=== PATIENT | female | born 1970 | race Caucasian/White ===

== ENCOUNTER → 2020-12-27 | Outpatient (CLI) | payer OTHER, SELFPAY ==
--- NOTE | 2020-12-28 | EMB_PTH ---
PATIENT: CALEB MATOS LOC: [facility] U#:[id number] AGE/SX: 50/F ROOM: RE12/27/[address]: Dr. Samir Neff MD : 1970 BED: DIS: 12/27/2020 SPEC #: [id number] RECD: 12/28/20 12:25 STATUS: JF SURAJ #: [id number] MECHE: 12/28/20 00:[address]: Samir Neff DEPT: SURGICAL PATHOLOGY RECD BY: Abhijeet Farrell Tissues: Endometrium, NOS Procedures: Surgery Specimen Level IV HEADER OPERATION: Endometrial biopsy PRE-OP DIAGNOSIS: Abnormal uterine bleeding TISSUE SUBMITTED: Endometrial biopsy MICROSCOPIC DIAGNOSIS Endometrium, biopsy: Weakly proliferative endometrium with focal glandular and stromal breakdown. AM:michele 12/29/2020 MICROSCOPIC DESCRIPTION Slides are reviewed. GROSS DESCRIPTION Received in fixative is one container labeled with the patient's name and designated EM biopsy. The specimen consists of multiple fragments of hemorrhagic soft tissue that in aggregate measure 2 x 1.5 x 0.2 cm. The specimen is totally submitted in one cassette. / SJ:michele 12/28/20 TC:5 CPT: 01087
[2021-01-02 17:57] LABS: HPV Reflexed? NOT INDICATED
== END | disposition home or self-care (01) ==
LOC: LABSPEC 12-28 09:10
PROVIDERS: Visit Provider Obstetrics & Gynecology
DX: N93.9 Abnormal uterine and vaginal bleeding, unspecified (principal); Z12.4 Encounter for screening for malignant neoplasm of cervix
CPT/HCPCS: 88175; 88305; G0145

== ENCOUNTER 2021-01-16 06:12 | Inpatient (IN) | payer SELFPAY, OTHER ==
--- NOTE | 2021-01-12 13:22 | EKG12_ITS ---
Test Reason : PREOP Blood Pressure : / mmHG Vent. Rate : 070 BPM Atrial Rate : 070 BPM P-R Int : 152 ms QRS Dur : 108 ms QT Int : 404 ms P-R-T Axes : 049 037 053 degrees QTc Int : 436 ms Normal sinus rhythm Normal ECG Confirmed by ERYN PHILIP, SARAH ([id number]), editorial assistant JONN VELEZ ([id number]) on 01/13/2021 10:08:26 AM Referred By: Samir Neff Confirmed By:SARAH CERNA MD
[2021-01-12 14:53] LABS: Hemoglobin 10.1 g/dL (12.0-15.0); Mean Corp Hgb Conc 29.7 g/dL (32-36); Mean Corpuscular Hgb 25.3 pg (27.0-32.0); Mean Corpuscular Volume 85.2 fL (81-99); Mean Platelet Vol. 10.8 fl (6.2-12.0); POSITIVE MORPHOLOGY YES; Platelet Count 304 K/mm3 (150-450); Red Blood Count 3.99 M/mm3 (4.2-5.4); White Blood Count 4.3 K/mm3 (4.4-11.0)
[2021-01-12 15:03] LABS: International Normalized Ratio 1.1; Prothrombin Time (Protime)PT. 13.8 SECONDS (11.7-14.9)
[2021-01-12 15:04] LABS: Partial Thromboplast Time 25.7 Seconds (24.1-36.2)
[2021-01-12 15:43] LABS: ALB/GLOB Ratio 1.2 RATIO (0.9-2.4); AST(SGOT) 18 U/L (15-37); Alanine Aminotransfer ALT/SGPT 40 U/L (13-56); Albumin, Serum 3.6 g/dL (3.2-5.0); Alkaline Phosphatase 25 U/L (45-117); Anion Gap 2 (5-15); BUN 9 mg/dL (7-18); BUN/Creat Ratio 11.3 RATIO (10-20); Calcium,Total 8.5 mg/dL (8.5-10.1); Chloride 110 mmol/L (98-107); Creatinine, Serum 0.79 mg/dL (0.55-1.02); EST Glomerular Filtration Rate 81 mL/min (>60); Est Glom Filt Rate - Afr Amer 98 mL/min (>60); Globulin 3.1 g/dL (2.2-4.2); Glucose 83 mg/dL (74-106); Magnesium 2.4 mg/dL (1.6-2.6); Potassium 3.6 mmol/L (3.5-5.1); Protein, Total 6.7 g/dL (6.4-8.2); Sodium Level 140 mmol/L (136-145)
[2021-01-12 15:55] LABS: Scan Indicated on CBC? Y/N YES- FLAGS NOTED
[2021-01-13 13:30] LABS: Pathologist Review Reviewed
--- NOTE | 2021-01-15 15:32 | PCM.HP.BLA ---
History and Physical Date of Admission: 01/16/21 Surgical History and Physical Alina Dodd, a 50 year old female 5 0 0 0 5, presents for RICK/BSO on January 16, 2021 at 11:30. -- Excessive Vaginal Bleeding and Blood Loss Anemia; Ovarian Cyst -- Pt is a 50yo female with regular monthly menses. She relates her menses is typically heavy flow and lasts 5-7days. LMP 12/11/20 and pt has been bleeding for 17 days continual. She began having moderate to severe pain in the lower abd 12/16/20 at which time she saw her PCP and had a full workup including pelvic sono that shows a Uterine fibroid as well as a 5cm cyst on her Lt ovary. Pt relates she had a bleeding ovarian cyst in . Hgb is 7.3 today. Menorrhagia which began Pain began Dec. Alina claims it started suddenly and has been present since 12/16/20. It occurs bleeding since 12/11 and pain since 12/16. It is located in the vaginal bleeding. Alina characterizes it to be non-radiating. Associated signs and symptoms are Heavy Vag bleeding and Anemia. Additional comments are: Bleeding minimal past few days; u/s at [facility] showed 2-3 cm anterior fibroid but posterior uterus not well seen.; Additional comments are: u/s with thickened endometrium; 6 cm complex left ovarian cyst seen. CA-125 approx 105. Bleeding stopped recently with Aygestin taper. MEDICATIONS HISTORY: Current medications prescribed by our practice are: 1. Aygestin 5 mg tablet, One pill by mouth twice a day Patient is also takin. iron, 1 po daily 2. Vitamin D3 400 unit tablet ALLERGIES: NKDA Illnesses - none Accidents - no injuries of consequence Hospitalizations - surgery bleeding ovarian cyst; Review of Systems: GENERAL - Denies fever, or chills SKIN - Denies skin changes EYES - Denies visual changes EARS - Denies difficulty hearing NOSE - Denies nasal congestion or bleeding MOUTH - Denies sore throat or difficulty swallowing NECK - Denies pain or swelling RESPIRATORY - Denies shortness of breath or wheezing CARDIOVASCULAR - Denies palpitations or chest pain GASTROINTESTINAL - Denies nausea, vomiting, diarrhea, constipation GENITOURINARY - Denies dysuria, frequency of urination, incontinence of urine MUSCULOSKELETAL - Denies joint or muscle pain NEUROLOGICAL - Denies localized numbness or weakness PSYCHIATRIC - Denies depression or anxiety ENDOCRINE - Denies heat or cold intolerance, weight loss or gain HEMATO-IMMUNOLOGIC - Denies excesive bleeding with cuts SOCIAL HISTORY: Alcohol Use - denies drinking Smoking - denies smoking Diet - balanced Diet Lifestyle - moderate stress lifestyle and Exercise - regular Seat Belt Use - always Job Description - homemaker Illicit Drug Use - denies use of street drugs Sexual Activity - Spouse-Sig Other Name - Nate Spouse-Sig Other Occupation - owns business Spouse-Sig Other Phone No - [phone] Children Name(s) - 5 children Control - NONE FAMILY HISTORY: Family history of Heart Disease. MENSTRUAL HISTORY: LMP Known?- DefiniteAmount/Duration - 5 to 7 days, Regularity - Regular, Frequency - 30-34 days, LMP - 01/11/21, Age Onset Menarche - 11 PAST PREGNANCIES: Total Pregnancies - 5; Full Term Pregnancies - 5; Premature - 0; Abortions, Induced - 0; Abortions, Spontaneous - 0; Ectopics - 0; Multiple Births - 0; Living Children - 5 SURGICAL HISTORY: 1. 06/16/1994 bleeding ovarian cyst PHYSICAL EXAM BP- 114/76 Sitting, Right arm, regular cuff Weight- 136.39232 lbs Height- 62.5 inch BMI:24.53 CONSTITUTIONAL - NAD, well nourished, and well developed SKIN - No rash, lesions, or ulcers HEENT - Normocephalic, PERRLA, EOMI NECK - No nodes, no nuchal rigidity and thyroid normal size and texture LYMPH NODES - Palpation of lymph nodes in neck and groins within normal limits LUNGS - CTA x2 without wheezes, crackles or rales CARDIAC - Regular rate and rhythm without rubs, murmurs, or gallops ABDOMEN - Without hepatosplenomegaly, distention, masses, rebound, or guarding; normal bowel sounds; no hernias EXTREMITIES - No edema or calf tenderness NEUROLOGICAL - Cranial nerves II-XII grossly intact PSYCHIATRIC - A and O to time, place, person, mood and affect External Genitial Vagina - non-tender without lesions Urethra/Urethral Meatus - non-tender Bladder - non-tender Vagina - vaginal jaramillo are pink and moist without loss of rugae and no evidence of atropy Cervix - bulbous; pushed anterior by posterior uterine mass likely approx 5 cm fibroid near posterior cervix. Uterus - enlarged uterus 12 wks, wt 280-320 g Adnexa - clear without massess or tenderness ASSESSMENT/PLAN: 1. Chr Blood Loss Anemia and Uterine Leiomyoma Unspec Likely due to submucous fibroids low in posterior uterus near cervix. Too low for vaginal removal. EMBx OK and CA-125 was about 105. Likely benign process so will proceed with RCIK/BSO. Discussed RBAs of RICK/BSO including need for HRT and all questions answered.
[2021-01-16] VITALS (12 sets, daily range): BP systolic 120–163; BP diastolic 79–90; PULSE 61–80; RESP 16–20; TEMP 36.2–37.5; O2SAT 96–100; BMI 23.4; BMI 23.3
--- NOTE | 2021-01-16 | HYST_PTH ---
PATIENT: CALEB MATOS LOC: [facility] U#:[id number] AGE/SX: 50/F ROOM: TX313 RE01/16/[address]: Dr. Samir Neff MD : 1970 BED: 1 DIS: 01/17/2021 SPEC #: [id number] RECD: 01/16/21 13:40 STATUS: JF REQ #: [id number] MECHE: 01/16/21 00:[address]: Samir Neff DEPT: SURGICAL PATHOLOGY RECD BY: Abhijeet Farrell ENTERED: 01/17/21 08:01 SP TYPE: HYSTERECT OTHR DR: Cristina Kim, CHILD CARE SITTER-C Tissues: Uterus, NOS Procedures: Surgery Specimen Level V HEADER OPERATION: ERAS, total abdominal hysterectomy, bilateral salpingo-oophorectomy PRE-OP DIAGNOSIS: Chronic blood loss anemia, uterine leiomyoma TISSUE SUBMITTED: Uterus, cervix, bilateral fallopian tubes and ovaries MICROSCOPIC DIAGNOSIS Uterus, cervix, bilateral fallopian tubes and ovaries, total abdominal hysterectomy and bilateral salpingo-oophorectomy: Cervix ? chronic cystic cervicitis with focal squamous metaplasia. Endometrium ? weakly secretory endometrium with focal changes consistent with exogenous hormone effects. Myometrium - Intramural and subserosal leiomyomas (largest measuring 4 cm in greatest dimension. - Adenomyosis. Bilateral fallopian tube - no pathologic diagnosis. Bilateral ovaries - no pathologic diagnosis. Focal right tubo-ovarian adhesions. SJ:michele 01/18/2021 COMMENT Please make reference to previous specimen ([id number]) endometrium, biopsy with diagnosis of weakly proliferative endometrium with focal glandular and stromal breakdown. MICROSCOPIC DESCRIPTION Slides are reviewed. GROSS DESCRIPTION Received in fixative is one container labeled with the patient's name and designated uterus, cervix, bilateral fallopian tubes and bilateral ovaries. The specimen consists of a previously, partially opened hysterectomy specimen consisting of uterus with cervix, attached bilateral fallopian tubes and ovaries and detached nodular piece. The uterus with cervix and detached nodular piece weighs in aggregate 332 gm. The uterus with cervix measures 12 x 10 x 6 cm. The serosal surface is reis, glistening. Multiple subserosal nodules are noted. The ectocervical mucosa is congested. The external os is slit-like in contour. The endocervical canal measures 3 cm in length and the endocervical mucosa is reis, glistening and unremarkable. Sections of the cervix reveal multiple cysts filled with mucoid material. The endometrial cavity measures 5.5 cm in length and up to 3 cm in width. The endometrium is reis, glistening without any mass lesion and up to 0.3 cm in thickness. Sections of the uterine wall reveal multiple intramural and subserosal nodular masses. The largest mass measures 2 cm in greatest dimension. The detached nodular mass measures 4 x 3 x 2.5 cm. Sections of these masses reveal reis whorled cut surfaces without areas of hemorrhage, necrosis or cystic degeneration. The uninvolved uterine wall measures up to 4 cm in thickness. The right fallopian tube measures 5 cm in length and 0.7 cm in diameter. The fimbrial end is identified. Focal tubo-ovarian adhesions are noted. The right ovary measures 3 x 2 x 1.5 cm. Sections of the fallopian tube and ovary do not reveal any mass lesion. The left fallopian tube measures 4.5 cm in length and 0.5 cm in dimeter. The fimbrial end is identified. Sections reveal unremarkable cut surfaces. No tubo-ovarian adhesions are noted. The left ovary measures 3 x 1.5 x 1.5 cm. Sections reveal unremarkable cut surfaces. Insurance Follow Up Specialist sections are submitted in 12 cassettes as follows: 1??anterior cervix, 2 - posterior cervix, 3 & 4 - anterior uterine wall, 5 & 6 - posterior uterine wall, 7??largest nodular mass, 8 - intermediate size and smaller nodular masses, 9 - detached nodular mass, 10 & 11 - right fallopian tube and ovary, 12 - left fallopian tube and ovary. / RASHID:michele 01/17/21 TC:1 CPT: 07174
[2021-01-16 06:47] LABS: Internal QC Validated? YES +Cl - CLEAR BKGD; Pregnancy, Urine Negative Negative
[2021-01-16] MEDS: Lactated Ringers 1,000 ML 40 ML IV ×2 (06:56→09:16)
[2021-01-16] MEDS: Acetaminophen 500 MG Tablet 1000 MG PO ×4 (07:00→23:38)
[2021-01-16] MEDS: Gabapentin 600 MG Tablet PO (07:00)
[2021-01-16 07:06] LABS: Bedside Glucose 81 mg/dL (70-110)
[2021-01-16] MEDS: Cefazolin 2 GM in 0.9% Normal Saline 100 ML IV (08:37)
--- NOTE | 2021-01-16 08:51 | PCM.OPRPT ---
Problems Associated Problem List Diagnoses (1) Acute blood loss anemia (ABLA): (2) Leiomyoma: (3) Ovarian cyst: Report of Operation Date of Procedure: 01/16/21 Pre-Operative Diagnosis: Uterine Fibroids, Ovarian Cysts, Blood Loss Anemia Post-Operative Diagnosis: Submucous Fibroids, Blood Loss Anemia Surgery/Procedure Performed:: Total Abdominal Hysterectomy with Bilateral Salpingo-Oophorectomy Description of Surgical Findings:: 14 cm uterus with left 3 x 5 cm subserosal fibroid. Normal fallopian tubes and ovaries visualized. Normal upper abdomen. Normal pelvic and periaortic lymph nodes. Upon opening the uterus after the surgery there was noted to be approximately a 4 to 5 cm submucous fibroid present in the uterus. architectural administrative assistant: Rosendo Perez Type of Anesthesia: General/Regional (Endotracheal) Anesthesiologist: Becky Archer Specimen's removed: Uterus and bilateral fallopian tubes and ovaries. Drains: Houser to straight drain Estimated Blood Loss (mL): 100 cc Fluids Replaced: Crystalloid Description of Procedure: Surgeon: Samir Neff MD, FACOG Indications: This is a 50-year-old patient who his been having problems with extremely heavy periods. She was also noted to have an elevated CA-125 of about 105. Given this the patient desires that we proceed with the above procedure. She has been counseled regarding the risk and indications of this procedure including the possibility of bleeding, infection, and injury to surrounding structures such as bowel bladder. All questions were answered. Procedure: Patient was taken to the operating room where after induction of general anesthesia she was prepped and draped in the usual sterile fashion. A Houser catheter was placed. The abdomen was entered through a Pfannenstiel incision and peritoneal cavity was entered bluntly. [place] retractor was placed. Round ligaments were identified and ligated with 0 Vicryl suture. Infundibulopelvic ligaments were ligated x2. The subserosal fibroid was removed. This allowed developing a bladder flap and progressive bites were then taken down on either side of the uterine cervix ligating each pedicle with 0 Vicryl suture. Final bites across the vaginal cuff incorporated the uterosacral ligaments into the vaginal cuff using 0 Vicryl suture; angles were closed with 0 Vicryl suture in a Priya fashion. Multiple krbysa-io-rlsad sutures were placed across the vaginal cuff. Vaginal cuff and pelvic sidewall pedicles were oversewn where necessary to achieve hemostasis. The upper abdomen including the liver were palpated and noted to be normal. Pelvis was copiously irrigated removing all clot. Valentina retractor was removed and rectus abdominis muscles were reapproximated in the midline with interrupted 0 Vicryl suture. 0 PDS strata fix was used to close the fascia in a running fashion and subcutaneous tissue was copiously irrigated with saline solution before closing with 3-0 Vicryl suture. 3-0 Monocryl suture was then used in running fashion to reapproximate skin edges area and Steri-Strips and a Mepilex dressing were placed across the incision. Patient tolerated the procedure well was taken to recovery room in satisfactory condition; sponge instrument and needle counts were all reportedly correct. Estimated blood loss for the case was 100 cc. Ancef 2 g IV was given prior to beginning the operative procedure. There were no apparent complications of the surgery. Specimen to pathology was uterus and bilateral fallopian tubes and ovaries. Grafts/Implants Used: None Complications None Admit VTE Documentation VTE Present on Admission: Yes VTE Mechan Device Prophylaxis: SCD's VTE Pharm Prophylaxis ordered?: Yes
--- NOTE | 2021-01-16 10:19 | DCINST_ITS ---
Discharge Instructions Outpatient Procedure Reason For Visit: RICK, BSO Procedure: Appendectomy Diet Discharge Diet: No restrictions Activity Discharge Activity: May not drive while taking narcotic pain medications., May Shower and May Take a Tub Bath May resume sexual activity in: 6 weeks (nothing in the vagina.) Lifting Restrictions: 25 pounds for 6 weeks. Dressing / Incision Call your doctor if your incision/area has: Continuous Slow Oozing, Sudden Increased Bleeding, Increased Pain/ Swelling, Increased Redness and Foul Sme lling Discharge Call your doctor if you observe: Fever of 101 or Higher, Inability to urinate, Inability to have a bowel movement, Using more than one pad per hour and - (Some vaginal bleeding may be noted for up to 4-8 weeks.) Remove Dressing in: 1 week (OK to leave steri-strips in place under Mepilex dressing ) Cleanse incision/area with: - (Let the soapy water run over your incision, rinse and pat dry.) Additional Dressing/Incision Instructions:: The white strips (Steri Strips) on your incision will fall off on their own. Follow Up Care Please Follow Up With: Samir Neff MD When: Call [phone] for an appointment to be seen in 2 weeks. Test Results: Test results from this visit will be discussed in further detail at your follow-up appointment, if applicable. Discharge Plan Admission Admit Date/Time: 01/16/21 06:12 Attending Provider: Samir Neff Primary Care Provider: Cristina Kim Discharge Orders/Prescriptions Prescriptions: No Action ferrous sulfate 325 mg (65 mg iron) Tablet 325 mg PO TID RF: 0 docusate sodium [Stool Softener] 100 mg Capsule 100 mg PO TID RF: 0 [place]-3 Capsule 1,000 mg PO DAILY RF: 0 cholecalciferol (vitamin D3) [Vitamin D3] 125 mcg (5,000 unit) Tablet 250 mcg PO DAILY RF: 0
[2021-01-16] MEDS: Ondansetron 4 MG/2 ML Vial IV (11:11)
[2021-01-16] MEDS: Lactated Ringers 1,000 ML 150 ML IV (11:33)
[2021-01-16] MEDS: Ketorolac 30 MG/ML Syringe IV ×3 (12:45→23:38)
[2021-01-16] MEDS: Docusate Sodium 100 MG Capsule PO ×2 (12:45→22:14)
[2021-01-16] MEDS: 0.9% Saline Lock 10 ML Syringe IV ×2 (12:49→23:38)
[2021-01-16] MEDS: oxyCODONE 5 MG Tablet PO (16:16)
[2021-01-16] MEDS: Cefazolin 1 GM/50 ML BAG IV (17:49)
[2021-01-17] MEDS: Cefazolin 1 GM/50 ML BAG IV (02:10)
[2021-01-17 02:14] VITALS: BP 132/72; PULSE 73; RESP 16; TEMP 37.1; O2SAT 97
[2021-01-17] MEDS: Ketorolac 30 MG/ML Syringe IV ×3 (06:16→18:05)
[2021-01-17] MEDS: 0.9% Saline Lock 10 ML Syringe IV (06:16)
[2021-01-17] MEDS: Acetaminophen 500 MG Tablet 1000 MG PO ×3 (06:16→18:06)
[2021-01-17 06:19] VITALS: BP 124/73; PULSE 61; RESP 16; TEMP 37.3; O2SAT 97
[2021-01-17 07:16] LABS: Creatinine, Serum 0.73 mg/dL (0.55-1.02); EST Glomerular Filtration Rate 89 mL/min (>60); Est Glom Filt Rate - Afr Amer 107 mL/min (>60); Estimated Creatinine Clearance 77.85 ml/min
[2021-01-17 07:30] VITALS: O2SAT 98
[2021-01-17 07:38] LABS: Hematocrit 37.7 % (37-47); Hemoglobin 11.4 g/dL (12.0-15.0); Mean Corp Hgb Conc 30.2 g/dL (32-36); Mean Corpuscular Hgb 26.1 pg (27.0-32.0); Mean Corpuscular Volume 86.3 fL (81-99); Mean Platelet Vol. 11.1 fl (6.2-12.0); POSITIVE MORPHOLOGY YES; Platelet Count 274 K/mm3 (150-450); Red Blood Count 4.37 M/mm3 (4.2-5.4); White Blood Count 7.9 K/mm3 (4.4-11.0)
[2021-01-17 07:54] VITALS: BP 106/68; PULSE 72; RESP 16; TEMP 37.3; O2SAT 98
[2021-01-17 08:09] LABS: Scan Indicated on CBC? Y/N YES- FLAGS NOTED
[2021-01-17 08:15] LABS: Differential Comment SCANNED
--- NOTE | 2021-01-17 08:47 | PCM.PN.OB ---
Subjective Subjective: Patient without complaints. Tolerating diet well. Denies flatus. Pain well controlled. Discussed surgery at length. Objective Data Objective Data Wound is clean, dry, intact covered with Mepilex dressing. Good urine output. Hemoglobin and creatinine okay. Vital Signs: Vital Signs Temp Pulse Resp BP Pulse Ox 99.2 F H 72 16 106/68 98 01/17/21 07:54 01/17/21 07:54 01/17/21 07:54 01/17/21 07:54 01/17/21 07:54 Oxygen Flow Rate (L/min) 6 Oxygen Delivery Method Room Air Weight: 136 lb 7.458 oz Body Mass Index (BMI) 23.3 Intake & Output: Intake and Output for Last 24 Hours 01/15/21 01/16/21 01/17/21 23:59 23:59 23:59 Intake Total 3160 / 3960 1050 / 1050 Output Total 1950 / 3475 3025 / 3025 Balance 1210 / 485 -1974 / Lab / Micro Data Result Diagrams: 01/17/21 06:25 01/17/21 06:25 Labs: Laboratory Results - last 24 hr 01/17/21 01/17/21 06:25 06:25 WBC 7.9 RBC 4.37 Hgb 11.4 L Hct 37.7 MCV 86.3 MCH 26.1 L MCHC 30.2 L RDW Std Deviation TNP RDW Coeff of Cindy TNP Plt Count 274 MPV 11.1 Differential Comment SCANNED Creatinine 0.73 Estim Creat Clear Calc 77.85 Est GFR (MDRD) Af Amer 107 Est GFR (MDRD) Non-Af 89 Micro: Microbiology 01/12/21 13:20 Interface Orders SARS-CoV-2 Antigen (Rapid) - Final Assessment & Plan Assessment/Plan (1) Ovarian cyst: Status: Acute Code(s): N83.209 - Unspecified ovarian cyst, unspecified side (2) Leiomyoma: Status: Acute Code(s): D21.9 - Benign neoplasm of connective and other soft tissue, unspecified (3) Acute blood loss anemia (ABLA): Status: Acute Code(s): D62 - Acute posthemorrhagic anemia (4) Acute postoperative pain of abdomen: Status: Acute Code(s): G89.18 - Other acute postprocedural pain; R10.9 - Unspecified abdominal pain Plan: Doing well postoperative day #1 status post total abdominal hysterectomy and bilateral salpingo-oophorectomy. Discharge instructions given should patient decide she is ready to go home later today. Otherwise continuing present care.
--- NOTE | 2021-01-17 10:20 | CASEMGMT ---
RN CM Face to Face with patient for initial transition planning/care coordination assessment. RN CM introduced self and role at [facility]. Patient lying in bed, alert and oriented. Patient willing to participate in assessment and is able to answer all questions appropriately. Care providers, pharmacy, and demographics verified. Patient wishes to discharge home, denies need for home health at this time. Patient states she has no further needs or concerns at this time. CM to follow for discharge planning needs that may arise. PCP: Judy FOLDER TAPER OPERATOR Specialists: SEAN Neff Preferred [facility]acy: [facility] Insurance: [employer] Prescription Benefit: none Living Will/HPOA: yes Nate Dodd LNOK: Living Arrangements: Patient lives with in a 2 story home with bed and bath on first floor, 3 steps to enter the home. Patient states she is independent at home. Transportation: Driving service DME/HHC: Patient denies DME or previous HHC. Disposition Plan: Patient to discharge home with family support and follow-up plans in place. Kandy RAYMOND, RN, CM
[2021-01-17] MEDS: Enoxaparin 40 MG/0.4 ML Syringe 30 MG SC (10:39)
[2021-01-17] MEDS: Estradiol 1 MG Tablet PO (10:41)
[2021-01-17] MEDS: Docusate Sodium 100 MG Capsule PO (10:41)
[2021-01-17 15:21] VITALS: BP 99/71; PULSE 71; RESP 16; TEMP 36.9; O2SAT 98
== END 2021-01-17 19:12 | disposition home or self-care (01) | DRG 742 ==
LOC: ACINP 06:14 → MS3 13:25
PROVIDERS: Anesthesiology; Admitting Provider Obstetrics & Gynecology; PCP Nurse Practitioner Family; Referring Provider Obstetrics & Gynecology; Visit Provider Obstetrics & Gynecology
PROC: 0UT90ZZ Resection of Uterus, Open Approach (ICD-10-PCS; CPT 58150; principal; 2021-01-16 08:15)
DX: D25.0 Submucous leiomyoma of uterus (principal); D62 Acute posthemorrhagic anemia; D25.2 Subserosal leiomyoma of uterus; N83.202 Unspecified ovarian cyst, left side; N92.0 Excessive and frequent menstruation with regular cycle; R97.1 Elevated cancer antigen 125 [CA 125]; Z79.899 Other long term (current) drug therapy
CPT/HCPCS: 36415; 80053; 81025; 82565; 82962; 83735; 85027; 85610; 85730; 86850; 86900; 86901; 87426; 88307; 93005; 99251; C9803; J7120; A4216; G0463; J2405; J3475